=== PATIENT | female | born 2000 | race Caucasian/White ===

== ENCOUNTER 2024-07-18 17:43 | Emergency (ER) | payer MEDICAID ==
[~2024-07-18] VITALS: Ht 165.1 cm; Wt 60.3 kg
[~2024-07-18 17:43] MED LIST: ARIP15TA68 PO; ATOM40CA PO; DOXY-224 PO; OXCA150T14 PO; SULF1TAB49 PO
[2024-07-18 17:45] VITALS: BP 124/84; PULSE 119; RESP 16; O2SAT 97
[2024-07-18 20:12] VITALS: TEMP 98.5
== END 2024-07-18 20:15 | disposition home or self-care (01) ==
LOC: ER 17:44
DX: R40.0 Somnolence (principal); T50.996A Underdosing of other drugs, medicaments and biological substances, initial encounter; F41.9 Anxiety disorder, unspecified; F32.A Depression, unspecified; F20.9 Schizophrenia, unspecified; F41.0 Panic disorder [episodic paroxysmal anxiety]; F15.90 Other stimulant use, unspecified, uncomplicated; Z72.89 Other problems related to lifestyle; Z59.00 Homelessness unspecified; Z91.040 Latex allergy status; Y92.89 Other specified places as the place of occurrence of the external cause
CPT/HCPCS: 99281

== ENCOUNTER 2024-07-28 09:47 | Emergency (ER) | payer MEDICAID ==
[~2024-07-28] VITALS: Ht 167.6 cm; Wt 56.8 kg
[2024-07-28 10:10] VITALS: BP 110/60; PULSE 86; RESP 18; O2SAT 97
[2024-07-28] MEDS ORDERED: DOXY100C43 PO (10:23)
[2024-07-28 10:31] VITALS: TEMP 98
== END 2024-07-28 10:33 | disposition home or self-care (01) ==
LOC: ER 09:47
DX: S50.362A Insect bite (nonvenomous) of left elbow, initial encounter (principal); L03.114 Cellulitis of left upper limb; F20.9 Schizophrenia, unspecified; F15.90 Other stimulant use, unspecified, uncomplicated; F32.A Depression, unspecified; F41.0 Panic disorder [episodic paroxysmal anxiety]; Z91.040 Latex allergy status; Z79.899 Other long term (current) drug therapy; Z72.89 Other problems related to lifestyle; Z59.00 Homelessness unspecified; W57.XXXA Bitten or stung by nonvenomous insect and other nonvenomous arthropods, initial encounter; Y93.89 Activity, other specified; Y92.89 Other specified places as the place of occurrence of the external cause; Y99.8 Other external cause status
CPT/HCPCS: 99283